=== PATIENT | male | born 1965 | race Caucasian/White ===

== ENCOUNTER 2017-06-04 16:33 | Emergency (ER) | payer BC ==
[2017-06-04] MEDS ORDERED: CARBAMIDE PEROXIDE 15ML BTL OT ONE (16:55)
--- NOTE | 2017-06-04 16:59 | Emergency Department Record ---
History of Present Illness - General Chief complaint: ENT Stated complaint: PLUGGED EARS Time Seen by Provider: 06/04/17 16:41 Source: Patient Mode of Arrival: Ambulatory Limitations: No limitations - History of Present Illness Initial comments: The patient is here due to feeling like both ears are plugged with wax. He uses ear plugs a lot and feels like they are impacted with cerumen. He tried to get the was out of the L ear and feels like he pushed it in further. Now he is having some pain to the L ear. MD complaint: Other Onset/Timin -: Days(s) Location: R ear, L ear Severity scale (1-10): 5 Consistency: Constant Worsens with: None - Related Data Previous Rx's Medication Instructions Recorded Neomycin/Polymyxin B Sulf/Hc 3 drop AFFEAR QID #10 ml 06/04/17 [Cortisporin Otic] Allergies Allergy/AdvReac Type Severity Reaction Status Date / Time No Known Drug Allergies Allergy Verified 06/04/15 19:10 Travel Screening - Travel/Exposure Within Last 30 Days Have you traveled within the last 30 days?: No Review of Systems Constitutional: Denies: Chills, Fever Past Medical History - SOCIAL HISTORY Smoking Status: Current every day smoker - RESPIRATORY Hx Respiratory Disorders: No - CARDIOVASCULAR Hx Cardio Disorders: No - NEURO Hx Neuro Disorders: No - GI Hx GI Disorders: No - Hx Genitourinary Disorders: No - ENDOCRINE Hx Endocrine Disorders: No - MUSCULOSKELETAL Hx Musculoskeletal Disorders: Yes - PSYCH Hx Psych Problems: No - HEMATOLOGY/ONCOLOGY Hx Hematology/Oncology Disorders: No Family Medical History Any Significant Family History?: No Physical Exam - General General Appearance: Alert, Cooperative, No acute distress - Head Head exam: Atraumatic, Normocephalic - Eye Eye exam: Normal appearance, PERRL - ENT Ear exam: Normal external inspection, Other (There is bilateral cerumen impaction.). negative: External canal tenderness Throat exam: Normal inspection. negative: Tonsillar erythema, Tonsillar exudate - Neck Neck exam: Normal inspection, Full ROM. negative: Tenderness - Respiratory Respiratory exam: Normal lung sounds bilaterally. negative: Respiratory distress - Cardiovascular Cardiovascular Exam: Regular rate, Normal rhythm, Normal heart sounds Course Vital Signs 06/04/17 16:42 Temperature 98.9 F Pulse Rate [ 96 H Pulse Ox Probe] Respiratory 18 Rate Blood Pressure 137/110 [Left Arm] Pulse Ox 98 - Reevaluation(s) Reevaluation #1: Procedure note: The R impacted cerumen was removed with alligator forceps with no difficulty. There were no complications. 06/04/17 17:43 Reevaluation #2: Procedure note: The L ear canal impacted cerumen was removed using a combination of lavage and alligator forceps. The ear canal was very clear after with no bleeding or complications. 06/04/17 18:00 Disposition Disposition: Discharge Clinical Impression: Cerumen impaction Qualifiers: Laterality: bilateral Qualified Code(s): H61.23 - Impacted cerumen, bilateral Disposition: Home, Self-Care Condition: (2) Stable Instructions: Cerumen Impaction (ED) Additional Instructions: Please use the ear drops for 5 days. Return to the ER for any problems or pain. Prescriptions: Neomycin/Polymyxin B Sulf/Hc [Cortisporin Otic] 3 drop AFFEAR QID #10 ml Forms: Patient Portal Access Time of Disposition: 18:02 Quality - Quality Measures Quality Measures: N/A - Blood Pressure Screening View Details: Yes Does Patient Have Any of the Following: No Blood Pressure Classification: Hypertensive Reading Systolic Measurement: 123 Diastolic Measurement: 90 Screening for High Blood Pressure: < First Hypertensive BP, F/U Documented > [ G8950] First Hypertensive Follow-up Interventions: Referral to alternative/primary care provider.
== END 2017-06-04 18:11 | disposition home or self-care (01) ==
LOC: ER 16:33
DX: H61.23 Impacted cerumen, bilateral (principal); F17.210 Nicotine dependence, cigarettes, uncomplicated
CPT/HCPCS: 69210; 99282

== ENCOUNTER 2018-05-14 17:34 | Emergency (ER) | payer BC ==
[2018-05-14] MEDS ORDERED: TETANUS AND DIPHTHERIA PF 0.5 ML SYR IM ONE (17:56)
[2018-05-14] MEDS ORDERED: AMOXICILLIN/POTASSIUM CLAV 875MG/125MG TABLET PO ONE (17:56)
--- NOTE | 2018-05-14 17:58 | Emergency Department Record ---
History of Present Illness - General Stated complaint: DOG BITE RT EYE Time Seen by Provider: 05/14/18 17:47 Source: Patient Mode of Arrival: Ambulatory Limitations: No limitations Travel/Exposure to [place] Within 21 Days of Symptoms: No - History of Present Illness Initial comments: 52 yo male presents to ED for evaluation following an injury the the medial aspect of the right bernardo-orbital region while wrestling with his dog at home. Patient reports the dog's paw struck the medial aspect of the right eye resulting in small laceration, also reports scratch injury to the lateral lower lid region on examination. Patient denies injury to the globe, change in vision , or pain with blinking. Patient denies health problems at his baseline, reports that his last tetanus was > 5 years ago. MD chief complaint: Eye injury Onset/Timin -: Minutes(s) Onset Description: Sudden Location: Right eye Place: Home If Injury: Direct trauma Severity: Mild Consistency: Constant Associated Symptoms: None Treatments Prior to Arrival: None - Related Data Hx Tetanus Toxoid Vaccination: Yes Patient Tetanus UTD (within 5 yrs): No Previous Rx's Medication Instructions Recorded Neomycin/Polymyxin B Sulf/Hc 3 drop AFFEAR QID #10 ml 06/04/17 [Cortisporin Otic] Amoxicillin/Potassium Clav 1 tab PO BID #19 tab 05/14/18 [Augmentin 875-125 Tablet] Allergies Allergy/AdvReac Type Severity Reaction Status Date / Time No Known Drug Allergies Allergy Verified 06/04/15 19:10 Review of Systems Constitutional: Denies: Chills, Fever, Malaise, Night sweats Eyes: Reports: Eye pain (Small laceration to the medial bernardo-orbital region). Denies: Eye discharge, Photophobia ENT: Denies: Congestion, Ear pain, Epistaxis Respiratory: Denies: Cough, Dyspnea Cardiovascular: Denies: Chest pain, Dyspnea on exertion, Edema Endocrine: Denies: Fatigue, Heat or cold intolerance Gastrointestinal: Denies: Abdominal pain, Nausea, Vomiting Genitourinary: Denies: Incontinence, Retention Musculoskeletal: Denies: Arthralgia, Back pain, Gout, Joint swelling Skin: Denies: Bruising, Change in color Neurological: Denies: Abnormal gait, Confusion, Headache, Tingling, Tremors Psychiatric: Denies: Anxiety Hematological/Lymphatic: Denies: Anemia, Blood Clots Past Medical History - SOCIAL HISTORY Smoking Status: Current every day smoker - RESPIRATORY Hx Respiratory Disorders: No - CARDIOVASCULAR Hx Cardio Disorders: No - NEURO Hx Neuro Disorders: No - GI Hx GI Disorders: No - Hx Genitourinary Disorders: No - ENDOCRINE Hx Endocrine Disorders: No - MUSCULOSKELETAL Hx Musculoskeletal Disorders: Yes - PSYCH Hx Psych Problems: No - HEMATOLOGY/ONCOLOGY Hx Hematology/Oncology Disorders: No Physical Exam - General General Appearance: Alert, Oriented x3, Cooperative, Mild distress Limitations: No limitations - Head Head exam detail: Abrasion, Laceration. negative: Contusion, Maynard's sign, General tenderness, Hematoma - Eye Eye exam: Conjunctival injection, Other (There is 0.25 cm laceration involving the medial canthus of the right eyelid structures, no tarsal plate injury is present on examination, and no injury to the cannilicular system is identified on exmaination. (2) small abrasions are noted to the lower eye lid laterally, no lacerations are present here.). negative: Periorbital swelling, Periorbital tenderness, Scleral icterus - ENT Ear exam: negative: Auricular hematoma, Auricular trauma Nasal Exam: negative: Active bleeding, Discharge, Dried blood, Foreign body Mouth exam: negative: Drooling, Laceration, Muffled voice, Tongue elevation - Neck Neck exam: Normal inspection. negative: Meningismus, Tenderness - Respiratory Respiratory exam: Normal lung sounds bilaterally. negative: Respiratory distress, Rhonchi, Stridor, Wheezes - Cardiovascular Cardiovascular Exam: Regular rate, Normal rhythm, Normal heart sounds - GI/Abdominal GI/Abdominal exam: Soft. negative: Rebound, Rigid, Tenderness - Rectal Rectal exam: Deferred - exam: Deferred - Extremities Extremities exam: Normal inspection. negative: Pedal edema, Tenderness - Back Back exam: Denies: CVA tenderness (R), CVA tenderness (L) - Neurological Neurological exam: Alert, Normal gait, Oriented X3 - Psychiatric Psychiatric exam: Normal affect, Normal mood - Skin Skin exam: Abrasion (as described above) Type of lesion: abrasion Course - Reevaluation(s) Reevaluation #1: 05/14/18 18:04 Patient was seen and examined. No evidence for globe injury is present on examination. Patient does have a very small (<0.25 cm) laceration involving the medial canthus structures, no bleeding present No injury to the tarsal plates or cannilicular system is present on examination. Will clean the area and initiate treatment with Augmentin, update the patient's tetanus status. I discussed exam findings with the patient, offered transfer for possible specialist evaluation, patient declined. Patient appears stable for discharge at this time with instructions to return for any redness to the area, increased pain, globe pain, change in vision, or any general worsening of hi symptoms. Patient has an appointment with his eye doctor later this week as well. Disposition Disposition: Discharge Clinical Impression: Laceration of periorbital area Qualifiers: Encounter type: initial encounter Qualified Code(s): S01.81XA - Laceration without foreign body of other part of head, initial encounter Disposition: Home, Self-Care Condition: (2) Stable Instructions: Animal Bite (ED) Additional Instructions: Return to ED if your symptoms worsen or if you have any concerns. Augmentin as directed. Follow-up with your eye doctor in 3-5 days as directed. Prescriptions: Amoxicillin/Potassium Clav [Augmentin 875-125 Tablet] 1 tab PO BID #19 tab Forms: Patient Portal Access Time of Disposition: 17:57 Quality - Quality Measures Quality Measures: N/A - Blood Pressure Screening Does Patient Have Any of the Following: No Blood Pressure Classification: Hypertensive Reading Systolic Measurement: 135 Diastolic Measurement: 98 Screening for High Blood Pressure: < First Hypertensive BP, F/U Documented > [ G8950] First Hypertensive Follow-up Interventions: Referral to alternative/primary care provider.
== END 2018-05-14 18:29 | disposition home or self-care (01) ==
LOC: ER 17:34
DX: S01.111A Laceration without foreign body of right eyelid and periocular area, initial encounter (principal); W22.8XXA Striking against or struck by other objects, initial encounter; Y93.K9 Activity, other involving animal care; Y92.009 Unspecified place in unspecified non-institutional (private) residence as the place of occurrence of the external cause; F17.210 Nicotine dependence, cigarettes, uncomplicated
CPT/HCPCS: 96372; 99283